=== PATIENT | male | born 1975 | race Two or more races ===

== ENCOUNTER 2017-06-27 12:21 | Emergency (ER) | payer SELFPAY ==
[2017-06-27] MEDS: LISINOPRIL 10 MG TABLET PO (12:45)
[2017-06-27] MEDS: cloNIDine HCL 0.1 MG TABLET PO (12:45)
[2017-06-27] MEDS: hydroCHLOROthiazide 12.5 MG CAPSULE PO (12:57)
[2017-06-27] MEDS ORDERED: hydroCHLOROthiazide 25 MG TABLET PO (13:00)
== END 2017-06-27 13:34 | disposition home or self-care (01) ==
LOC: ER 12:21
DX: I10 Essential (primary) hypertension (principal); R07.2 Precordial pain; R20.0 Anesthesia of skin
CPT/HCPCS: 99284